=== PATIENT | male | born 1960 | race Caucasian/White ===

== ENCOUNTER 2017-02-22 13:35 | Emergency (ER) | payer OTHER ==
[~2017-02-22] VITALS: Ht 182.9 cm; Wt 116.8 kg
[2017-02-22 14:15] LABS: EOSINOPHIL (%) 0.3 % (0-5); HEMATOCRIT 44.4 % (38.0-50.0); IMMATURE GRANULOCYTE (%) 0.5 % (0.0-0.7); INSTRUMENT ABS NEUTROPHIL CT 6.4 K/uL; MCH 29.7 PG (29.0-34.0); MCHC 33.6 G/DL (30.0-36.0); MCV 88.4 FL (86-99); MEAN PLAT.VOLUME 9.9 uM^3 (9.0-12.4); MONOCYTE (%) 5.5 % (3-12); MONOCYTE COUNT 0.4 K/uL (0-0.8); NEUTROPHIL (%) 80.7 % (45-76); NEUTROPHIL COUNT 6.4 K/uL (1.8-6.4); PLATELET COUNT 180 K/uL (156-360); RBC DIS.WIDTH-CV 12.9 % (11.8-14.6); RBC DIS.WIDTH-SD 41.5 % (39-53); RED BLOOD COUNT 5.02 M/uL (4.00-5.50)
[2017-02-22 14:31] LABS: CHLORIDE 109 mEq/L (99-109); POTASSIUM 3.6 mEq/L (3.7-5.4); SODIUM 143 mEq/L (136-147)
[2017-02-22 14:34] LABS: GLUCOSE 181 mg/dL (70-99)
[2017-02-22 14:35] LABS: ANION GAP 13 MEQ/L (2-14)
[2017-02-22 14:36] LABS: TOTAL BILIRUBIN 0.9 mg/dL (0.0-1.0)
[2017-02-22 14:37] LABS: ALKALINE PHOSPHATASE 64 IU/L (3-129); GFR ESTIMATE (CALCULATED) > 59 mL/min/
[2017-02-22 14:38] LABS: UREA NITROGEN (BUN) 14 mg/dL (9-23)
[2017-02-22 14:39] LABS: TROP-I INTERPRETATION NEGATIVE; TROPONIN-I < 0.01 ng/mL (0.0-0.30)
[2017-02-22 16:37] LABS: TROP-I INTERPRETATION NEGATIVE; TROPONIN-I 0.01 ng/mL (0.0-0.30)
[2017-02-22 17:40] VITALS: BP 144/75
== END 2017-02-22 17:42 | disposition left against medical advice (07) ==
LOC: EME 13:35
PROVIDERS: Emergency Medicine
DX: R00.2 Palpitations (principal); R53.1 Weakness; R61 Generalized hyperhidrosis; Z87.891 Personal history of nicotine dependence
CPT/HCPCS: 71010; 80053; 84484; 85025; 93005; 99281; 99284

== ENCOUNTER 2017-08-17 17:24 | Observation (INO) | payer OTHER ==
[~2017-08-17] VITALS: Ht 182.9 cm; Wt 117.9 kg
[2017-08-17 18:27] LABS: HEMATOCRIT 41.3 % (38.0-50.0); HEMOGLOBIN 14.5 G/DL (12.5-16.6); MCH 30.1 PG (29.0-34.0); MCHC 35.1 G/DL (30.0-36.0); MCV 85.9 FL (86-99); PLATELET COUNT 218 K/uL (156-360); RBC DIS.WIDTH-CV 12.6 % (11.8-14.6); RBC DIS.WIDTH-SD 39.8 % (39-53); RED BLOOD COUNT 4.81 M/uL (4.00-5.50); WHITE BLOOD COUNT 8.3 K/uL (4.1-10.2)
[2017-08-17 18:38] LABS: ALBUMIN 4.2 g/dL (3.2-4.8); CHLORIDE 107 mEq/L (99-109); POTASSIUM 4.1 mEq/L (3.7-5.4); SODIUM 140 mEq/L (136-147)
[2017-08-17 18:40] LABS: GLUCOSE 120 mg/dL (70-99)
[2017-08-17 18:41] LABS: TOTAL PROTEIN 7.3 g/dL (6.4-8.3)
[2017-08-17 18:42] LABS: TOTAL BILIRUBIN 0.4 mg/dL (0.0-1.0)
[2017-08-17 18:44] LABS: ALKALINE PHOSPHATASE 61 IU/L (3-129); GFR ESTIMATE (CALCULATED) > 59 mL/min/ (58.99-99999)
[2017-08-17 18:45] LABS: UREA NITROGEN (BUN) 13 mg/dL (9-23)
[2017-08-17 18:46] LABS: AST (GOT) 19 IU/L (2-34)
[2017-08-17 18:47] LABS: ALT (GPT) 21 IU/L (3-49); LIPASE 42 U/L (1.0-51.0)
[2017-08-17 18:48] LABS: TROP-I INTERPRETATION NEGATIVE; TROPONIN-I < 0.01 ng/mL (0.0-0.30)
[2017-08-17] MEDS ORDERED: BUSPAR10 MG PO (21:14)
[2017-08-17] MEDS ORDERED: SERTRALINE HCL100 MG PO (21:14)
[2017-08-17] MEDS ORDERED: MIRTAZAPINE30 MG PO (21:14)
[2017-08-17] MEDS ORDERED: LUBRIDERM DAIL177 ML TP (21:15)
[2017-08-17] MEDS ORDERED: METFORMIN HCL500 MG PO (21:15)
[2017-08-17] MEDS ORDERED: VIAGRA100 MG PO (21:15)
[2017-08-17] MEDS ORDERED: LOPRESSOR50 MG PO (21:15)
[2017-08-17] MEDS ORDERED: HYDROCHLOROTHIA25 MG PO (21:15)
[2017-08-17] MEDS ORDERED: SF 5000 PLUS51 GM DT (21:16)
[2017-08-17 22:26] LABS: TROP-I INTERPRETATION NEGATIVE; TROPONIN-I < 0.01 ng/mL (0.0-0.30)
[2017-08-17 22:38] VITALS: BP 137/92
[2017-08-17 23:16] VITALS: BP 137/92
[2017-08-18 02:25] LABS: APPEARANCE CLEAR ((CLEAR)); BILIRUBIN NEGATIVE; BLOOD MODERATE; COLOR YELLOW ((YELLOW)); GLUCOSE (STRIP) 150; KETONES NEGATIVE; LEUKOCYTES NEGATIVE; NITRITE NEGATIVE; PROTEIN (STRIP) NEGATIVE; UROBILINOGEN 0.2 MG/DL (0.2-1.0)
[2017-08-18 02:28] LABS: TROP-I INTERPRETATION NEGATIVE; TROPONIN-I < 0.01 ng/mL (0.0-0.30)
[2017-08-18 02:32] LABS: BACTERIA NONE SEEN /HPF; EPITHELIAL CELLS RARE /HPF; MUCUS TRACE /LPF; WHITE BLOOD CELLS 0-5 /HPF (0-5)
[2017-08-18 02:50] LABS: SPECIFIC GRAVITY 1.062 (1.000-1.030)
[2017-08-18 04:10] VITALS: BP 107/62
[2017-08-18 09:20] VITALS: BP 119/68
[2017-08-18 11:14] VITALS: BP 98/65
[2017-08-18] MEDS ORDERED: LO-DOSE ASPIRIN81 M1 PO (14:41)
[2017-08-18 15:11] VITALS: BP 111/66
== END 2017-08-18 18:26 | disposition home or self-care (01) ==
LOC: EME 17:24 → EDOF 20:56 → 5WEST 20:56 → ENRESERV 21:01 → 5WEST 22:25
PROVIDERS: Emergency Medicine; Hospitalist
DX: R07.9 Chest pain, unspecified (principal); I10 Essential (primary) hypertension; F41.9 Anxiety disorder, unspecified; F32.9 Major depressive disorder, single episode, unspecified; I25.10 Atherosclerotic heart disease of native coronary artery without angina pectoris; E11.9 Type 2 diabetes mellitus without complications; R06.02 Shortness of breath; R11.0 Nausea; M19.90 Unspecified osteoarthritis, unspecified site; E66.9 Obesity, unspecified; Z68.35 Body mass index [BMI] 35.0-35.9, adult; Z82.49 Family history of ischemic heart disease and other diseases of the circulatory system; M54.5 Low back pain; G47.30 Sleep apnea, unspecified; Z87.891 Personal history of nicotine dependence; Z83.3 Family history of diabetes mellitus
CPT/HCPCS: 71275; 80053; 81003; 82948; 83690; 84484; 85027; 93005; 93306; 99281; 99285; G0378; J1650; J2270

== ENCOUNTER 2017-10-05 03:04 | Emergency (ER) | payer OTHER ==
[~2017-10-05] VITALS: Ht 177.8 cm; Wt 113.9 kg
[~2017-10-05 03:04] MED LIST: BUSPAR10 MG PO; HYDROCHLOROTHIA25 MG PO; LO-DOSE ASPIRIN81 M1 PO; LOPRESSOR50 MG PO; LUBRIDERM DAIL177 ML TP; METFORMIN HCL500 MG PO; MIRTAZAPINE30 MG PO; SERTRALINE HCL100 MG PO; SF 5000 PLUS51 GM DT; VIAGRA100 MG PO
[2017-10-05 03:54] LABS: HEMATOCRIT 41.7 % (38.0-50.0); HEMOGLOBIN 14.4 G/DL (12.5-16.6); MCH 30.3 PG (29.0-34.0); MCHC 34.5 G/DL (30.0-36.0); MCV 87.6 FL (86-99); PLATELET COUNT 193 K/uL (156-360); RBC DIS.WIDTH-CV 12.7 % (11.8-14.6); RBC DIS.WIDTH-SD 40.7 % (39-53); RED BLOOD COUNT 4.76 M/uL (4.00-5.50); WHITE BLOOD COUNT 5.7 K/uL (4.1-10.2)
[2017-10-05 03:56] LABS: CARBON DIOXIDE (BICARBONATE) 32.5 MEQ/L (20-31)
[2017-10-05 04:06] LABS: CHLORIDE 106 mEq/L (99-109); POTASSIUM 3.9 mEq/L (3.7-5.4); SODIUM 141 mEq/L (136-147)
[2017-10-05 04:07] LABS: GLUCOSE 130 mg/dL (70-99)
[2017-10-05 04:11] LABS: GFR ESTIMATE (CALCULATED) > 59 mL/min/ (58.99-99999)
[2017-10-05 04:12] LABS: UREA NITROGEN (BUN) 14 mg/dL (9-23)
[2017-10-05 04:15] LABS: TROP-I INTERPRETATION NEGATIVE; TROPONIN-I < 0.01 ng/mL (0.0-0.30)
[2017-10-05 06:13] VITALS: BP 115/90
== END 2017-10-05 06:15 | disposition home or self-care (01) ==
LOC: EME 03:04
PROVIDERS: Emergency Medicine
DX: F41.1 Generalized anxiety disorder (principal); R06.4 Hyperventilation; R41.0 Disorientation, unspecified; G47.30 Sleep apnea, unspecified; I45.10 Unspecified right bundle-branch block; I10 Essential (primary) hypertension; E11.9 Type 2 diabetes mellitus without complications; Z79.84 Long term (current) use of oral hypoglycemic drugs; Z87.891 Personal history of nicotine dependence
CPT/HCPCS: 71045; 80048; 82803; 84484; 85027; 93005; 99281; 99284

== ENCOUNTER 2017-11-26 08:39 | Emergency (ER) | payer OTHER ==
[~2017-11-26] VITALS: Ht 182.9 cm; Wt 116.8 kg
[2017-11-26 09:17] LABS: BASOPHIL (%) 0.6 % (0-1); EOSINOPHIL (%) 1.4 % (0-5); EOSINOPHIL COUNT 0.1 K/uL (0-0.3); HEMATOCRIT 43.4 % (38.0-50.0); IMMATURE GRANULOCYTE (%) 0.6 % (0.0-0.7); LYMPHOCYTE (%) 20.4 % (15-42); LYMPHOCYTE COUNT 1.3 K/uL (1.0-2.8); MCH 29.9 PG (29.0-34.0); MCHC 34.6 G/DL (30.0-36.0); MCV 86.6 FL (86-99); MONOCYTE (%) 5.4 % (3-12); MONOCYTE COUNT 0.4 K/uL (0-0.8); NEUTROPHIL (%) 71.6 % (45-76); NEUTROPHIL COUNT 4.6 K/uL (1.8-6.4); PLATELET COUNT 198 K/uL (156-360); RBC DIS.WIDTH-CV 12.5 % (11.8-14.6); RBC DIS.WIDTH-SD 39.3 % (39-53); RED BLOOD COUNT 5.01 M/uL (4.00-5.50); WHITE BLOOD COUNT 6.4 K/uL (4.1-10.2)
[2017-11-26 10:04] LABS: CHLORIDE 101 MEQ/L (99-109); GFR ESTIMATE (CALCULATED) > 59 mL/min/ (58.99-99999); GLUCOSE 130 mg/dL (70-99); POTASSIUM 4.1 MEQ/L (3.7-5.4); SERUM ETHYL ALCOHOL < 10 mg/dL; SODIUM 136 MEQ/L (136-147); UREA NITROGEN (BUN) 15 mg/dL (9-23)
[2017-11-26 10:12] LABS: AMPHETAMINE NEGATIVE (500 ng/mL); BARBITURATES NEGATIVE (200 ng/mL); BENZODIAZEPINES NEGATIVE (150 ng/mL); BUPRENORPHINE NEGATIVE (10 ng/mL); COCAINE NEGATIVE (150 ng/mL); METHADONE NEGATIVE (200 ng/mL); METHAMPHETAMINE NEGATIVE (500 ng/mL); OPIATES (MORPHINE) NEGATIVE (100 ng/mL); OXYCODONE NEGATIVE (100 ng/mL); PHENCYCLIDINE NEGATIVE (25 ng/mL); PROPOXYPHENE NEGATIVE (300 ng/mL); THC CANNABINOIDS NEGATIVE (50 ng/mL); TRICYCLIC ANTIDEPRESSANTS NEGATIVE (300 ng/mL)
[2017-11-26] MEDS ORDERED: KLONOPIN1 MG PO (11:04)
[2017-11-26 11:42] VITALS: BP 108/82
== END 2017-11-26 11:48 | disposition home or self-care (01) ==
LOC: EME 08:39
PROVIDERS: Emergency Medicine
DX: F41.0 Panic disorder [episodic paroxysmal anxiety] (principal); F41.1 Generalized anxiety disorder; E11.9 Type 2 diabetes mellitus without complications; I10 Essential (primary) hypertension; Z87.442 Personal history of urinary calculi; G43.909 Migraine, unspecified, not intractable, without status migrainosus; K21.9 Gastro-esophageal reflux disease without esophagitis; Z87.891 Personal history of nicotine dependence; Z79.84 Long term (current) use of oral hypoglycemic drugs; F43.10 Post-traumatic stress disorder, unspecified; G47.30 Sleep apnea, unspecified
CPT/HCPCS: 80048; 85025; 90839; 93005; 99281; 99284; G0480

== ENCOUNTER 2017-12-02 17:42 | Emergency (ER) | payer OTHER ==
[~2017-12-02 17:42] MED LIST changes: +KLONOPIN1 MG PO
== END 2017-12-02 18:18 | disposition left against medical advice (07) ==
LOC: EME 17:42
DX: R31.9 Hematuria, unspecified (principal); Z53.21 Procedure and treatment not carried out due to patient leaving prior to being seen by health care provider

== ENCOUNTER 2017-12-27 11:48 | Emergency (ER) | payer OTHER ==
[~2017-12-27] VITALS: Ht 182.9 cm; Wt 117.3 kg
[2017-12-27 12:57] LABS: HEMATOCRIT 43.6 % (38.0-50.0); HEMOGLOBIN 14.9 G/DL (12.5-16.6); MCH 30.2 PG (29.0-34.0); MCHC 34.2 G/DL (30.0-36.0); MCV 88.4 FL (86-99); PLATELET COUNT 218 K/uL (156-360); RBC DIS.WIDTH-CV 13.2 % (11.8-14.6); RBC DIS.WIDTH-SD 42.3 % (39-53); RED BLOOD COUNT 4.93 M/uL (4.00-5.50); WHITE BLOOD COUNT 7.9 K/uL (4.1-10.2)
[2017-12-27 13:04] LABS: APPEARANCE CLOUDY ((CLEAR)); BILIRUBIN NEGATIVE; BLOOD MODERATE; GLUCOSE (STRIP) NEGATIVE; KETONES NEGATIVE; LEUKOCYTES NEGATIVE; NITRITE NEGATIVE; PROTEIN (STRIP) 100; SPECIFIC GRAVITY 1.021 (1.000-1.030); UROBILINOGEN 0.2 MG/DL (0.2-1.0)
[2017-12-27 13:05] LABS: COLOR RED ((YELLOW))
[2017-12-27 13:13] LABS: ALBUMIN 4.4 g/dL (3.2-4.8); CHLORIDE 105 mEq/L (99-109); POTASSIUM 4.2 mEq/L (3.7-5.4); SODIUM 144 mEq/L (136-147)
[2017-12-27 13:15] LABS: GLUCOSE 111 mg/dL (70-99); TOTAL PROTEIN 7.4 g/dL (6.4-8.3)
[2017-12-27 13:17] LABS: TOTAL BILIRUBIN 0.7 mg/dL (0.0-1.0)
[2017-12-27 13:19] LABS: ALKALINE PHOSPHATASE 67 IU/L (3-129); CREATININE 1.2 mg/dL (0.6-1.3); GFR ESTIMATE (CALCULATED) > 59 mL/min/ (58.99-99999)
[2017-12-27 13:20] LABS: UREA NITROGEN (BUN) 14 mg/dL (9-23)
[2017-12-27 13:21] LABS: AST (GOT) 20 IU/L (2-34)
[2017-12-27 13:22] LABS: EPITHELIAL CELLS 1+ /HPF; MUCUS NONE SEEN /LPF; RED BLOOD CELLS 20-30 /HPF (0-5); WHITE BLOOD CELLS 0-5 /HPF (0-5)
[2017-12-27 13:22] LABS: ALT (GPT) 25 IU/L (3-49)
[2017-12-27 13:23] LABS: BACTERIA 2+ /HPF; UCUL ADDED? YES
[2017-12-27] MEDS ORDERED: FLOMAX0.4 MG PO (15:43)
[2017-12-27 15:53] VITALS: BP 137/86
== END 2017-12-27 15:53 | disposition home or self-care (01) ==
LOC: EME 11:48
DX: N13.2 Hydronephrosis with renal and ureteral calculous obstruction (principal); N28.1 Cyst of kidney, acquired; Z87.442 Personal history of urinary calculi; I10 Essential (primary) hypertension; E11.9 Type 2 diabetes mellitus without complications; Z79.84 Long term (current) use of oral hypoglycemic drugs; Z79.82 Long term (current) use of aspirin; Z87.891 Personal history of nicotine dependence
CPT/HCPCS: 74176; 80053; 81003; 85027; 87086; 99281; 99284

== ENCOUNTER 2018-02-10 11:47 | Emergency (ER) | payer OTHER ==
[~2018-02-10] VITALS: Ht 182.9 cm; Wt 117.4 kg
[~2018-02-10 11:47] MED LIST changes: +FLOMAX0.4 MG PO
[2018-02-10 12:42] LABS: AMPHETAMINE NEGATIVE (500 ng/mL); BARBITURATES NEGATIVE (200 ng/mL); BENZODIAZEPINES NEGATIVE (150 ng/mL); BUPRENORPHINE NEGATIVE (10 ng/mL); COCAINE NEGATIVE (150 ng/mL); METHADONE NEGATIVE (200 ng/mL); METHAMPHETAMINE NEGATIVE (500 ng/mL); OPIATES (MORPHINE) NEGATIVE (100 ng/mL); OXYCODONE NEGATIVE (100 ng/mL); PHENCYCLIDINE NEGATIVE (25 ng/mL); PROPOXYPHENE NEGATIVE (300 ng/mL); THC CANNABINOIDS NEGATIVE (50 ng/mL); TRICYCLIC ANTIDEPRESSANTS NEGATIVE (300 ng/mL)
[2018-02-10 12:51] LABS: BASOPHIL (%) 0.5 % (0-1); EOSINOPHIL (%) 0.9 % (0-5); EOSINOPHIL COUNT 0.1 K/uL (0-0.3); HEMATOCRIT 39.9 % (38.0-50.0); HEMOGLOBIN 13.9 G/DL (12.5-16.6); IMMATURE GRANULOCYTE (%) 0.5 % (0.0-0.7); LYMPHOCYTE (%) 16.3 % (15-42); LYMPHOCYTE COUNT 1.1 K/uL (1.0-2.8); MCH 30.5 PG (29.0-34.0); MCHC 34.8 G/DL (30.0-36.0); MCV 87.5 FL (86-99); MONOCYTE (%) 5.4 % (3-12); MONOCYTE COUNT 0.4 K/uL (0-0.8); NEUTROPHIL (%) 76.4 % (45-76); PLATELET COUNT 198 K/uL (156-360); RBC DIS.WIDTH-CV 12.9 % (11.8-14.6); RED BLOOD COUNT 4.56 M/uL (4.00-5.50); WHITE BLOOD COUNT 6.5 K/uL (4.1-10.2)
[2018-02-10 13:25] LABS: CHLORIDE 104 MEQ/L (99-109); GFR ESTIMATE (CALCULATED) > 59 mL/min/ (58.99-99999); GLUCOSE 138 mg/dL (70-99); POTASSIUM 4.2 MEQ/L (3.7-5.4); SODIUM 141 MEQ/L (136-147); UREA NITROGEN (BUN) 12 mg/dL (9-23)
[2018-02-10 13:35] LABS: THYROTROPIN (TSH) 1.1 MIU/L (0.4-5.5)
[2018-02-10 13:35] LABS: APPEARANCE CLEAR ((CLEAR)); BILIRUBIN NEGATIVE; BLOOD MODERATE; COLOR YELLOW ((YELLOW)); GLUCOSE (STRIP) NEGATIVE; KETONES NEGATIVE; LEUKOCYTES NEGATIVE; NITRITE NEGATIVE; PROTEIN (STRIP) NEGATIVE; SPECIFIC GRAVITY 1.019 (1.000-1.030); UROBILINOGEN 0.2 MG/DL (0.2-1.0)
[2018-02-10 13:38] LABS: BACTERIA NONE SEEN /HPF; EPITHELIAL CELLS NONE SEEN /HPF; MUCUS TRACE /LPF; RED BLOOD CELLS 0-5 /HPF (0-5); UCUL ADDED? NO; WHITE BLOOD CELLS 0-5 /HPF (0-5)
[2018-02-10 13:54] LABS: SERUM ETHYL ALCOHOL < 10 mg/dL
[2018-02-10] MEDS ORDERED: ATARAX,VISTARIL25 MG PO (14:56)
[2018-02-10 15:07] VITALS: BP 150/103
== END 2018-02-10 15:08 | disposition home or self-care (01) ==
LOC: EME 11:47
PROVIDERS: Emergency Medicine
DX: F41.9 Anxiety disorder, unspecified (principal); I10 Essential (primary) hypertension; E11.9 Type 2 diabetes mellitus without complications; K21.9 Gastro-esophageal reflux disease without esophagitis; G47.30 Sleep apnea, unspecified; F43.10 Post-traumatic stress disorder, unspecified; Z79.84 Long term (current) use of oral hypoglycemic drugs; Z87.891 Personal history of nicotine dependence; Z87.442 Personal history of urinary calculi
CPT/HCPCS: 80048; 81003; 84443; 85025; 90839; 99281; 99284; G0480

== ENCOUNTER 2018-03-10 17:46 | Emergency (ER) | payer OTHER ==
[~2018-03-10] VITALS: Ht 182.9 cm; Wt 119.4 kg
[~2018-03-10 17:46] MED LIST changes: +ATARAX,VISTARIL25 MG PO
[2018-03-10 18:53] LABS: CHLORIDE 108 mEq/L (99-109); POTASSIUM 3.8 mEq/L (3.7-5.4); SODIUM 143 mEq/L (136-147)
[2018-03-10 18:54] LABS: BASOPHIL (%) 0.5 % (0-1); EOSINOPHIL (%) 0.7 % (0-5); EOSINOPHIL COUNT 0.1 K/uL (0-0.3); HEMATOCRIT 41.5 % (38.0-50.0); HEMOGLOBIN 14.6 G/DL (12.5-16.6); IMMATURE GRANULOCYTE (%) 0.5 % (0.0-0.7); LYMPHOCYTE (%) 11.7 % (15-42); MCH 30.6 PG (29.0-34.0); MCHC 35.2 G/DL (30.0-36.0); MONOCYTE (%) 6.3 % (3-12); MONOCYTE COUNT 0.5 K/uL (0-0.8); NEUTROPHIL (%) 80.3 % (45-76); NEUTROPHIL COUNT 6.6 K/uL (1.8-6.4); PLATELET COUNT 200 K/uL (156-360); RBC DIS.WIDTH-CV 12.5 % (11.8-14.6); RBC DIS.WIDTH-SD 39.8 % (39-53); RED BLOOD COUNT 4.77 M/uL (4.00-5.50); WHITE BLOOD COUNT 8.3 K/uL (4.1-10.2)
[2018-03-10 18:55] LABS: GLUCOSE 145 mg/dL (70-99)
[2018-03-10 18:59] LABS: CREATININE 1.1 mg/dL (0.6-1.3); GFR ESTIMATE (CALCULATED) > 59 mL/min/ (58.99-99999); UREA NITROGEN (BUN) 14 mg/dL (9-23)
[2018-03-10 19:03] LABS: TROP-I INTERPRETATION NEGATIVE; TROPONIN-I < 0.01 ng/mL (0.0-0.30)
[2018-03-10] MEDS ORDERED: KLONOPIN1 MG PO (20:51)
[2018-03-10 21:15] VITALS: BP 118/87
== END 2018-03-10 21:16 | disposition home or self-care (01) ==
LOC: EME 17:46
PROVIDERS: Emergency Medicine
DX: R00.2 Palpitations (principal); F41.9 Anxiety disorder, unspecified; R42 Dizziness and giddiness; I10 Essential (primary) hypertension; E11.9 Type 2 diabetes mellitus without complications; Z79.84 Long term (current) use of oral hypoglycemic drugs; Z87.891 Personal history of nicotine dependence
CPT/HCPCS: 71045; 80048; 84484; 85025; 85379; 93005; 99281; 99284